=== PATIENT | male | born 1995 | race Caucasian/White ===

== ENCOUNTER 2018-06-09 18:03 | Emergency (ER) | payer OTHER ==
[~2018-06-09] VITALS: Ht 172.7 cm; Wt 93.2 kg
[~2018-06-09 18:03] MED LIST: CEPHALEXIN500 MG PO; LORTAB 5/3255 MG PO; NO HOME MEDS; TOBRADEX 2.5 ML OU
[2018-06-09] MEDS ORDERED: CEPHALEXIN500 M1 PO (18:36)
[2018-06-09 19:01] VITALS: BP 142/88
== END 2018-06-09 19:01 | disposition home or self-care (01) | DRG 605 ==
LOC: ED 18:03
PROC: 0HQGXZZ Repair Left Hand Skin, External Approach (ICD-10-PCS; principal; 2018-06-09)
DX: S61.012A Laceration without foreign body of left thumb without damage to nail, initial encounter (principal); F17.290 Nicotine dependence, other tobacco product, uncomplicated; W29.8XXA Contact with other powered hand tools and household machinery, initial encounter; Y92.009 Unspecified place in unspecified non-institutional (private) residence as the place of occurrence of the external cause